=== PATIENT | female | born 1960 | race Caucasian/White ===

== ENCOUNTER 2022-06-20 19:48 | Emergency (ER) | payer OTHER ==
[~2022-06-20] VITALS: Ht 157.5 cm; Wt 50.8 kg
[~2022-06-20 19:48] MED LIST: BACTRIM DS TAB1 EACH PO
== END 2022-06-20 22:55 | disposition home or self-care (01) ==
LOC: ED 19:48
DX: T84.021A Dislocation of internal left hip prosthesis, initial encounter (principal); X58.XXXA Exposure to other specified factors, initial encounter; Z87.891 Personal history of nicotine dependence
CPT/HCPCS: 27265; 73502; 99152; 99283-25; J0780; J2270; J2405; J7121

== ENCOUNTER 2022-08-01 13:29 | Emergency (ER) | payer OTHER ==
[~2022-08-01] VITALS: Ht 157.5 cm; Wt 50.8 kg
--- NOTE | 2022-08-02 07:06 | OR ---
[facility] [address] [place], [place] [address] Signed DATE OF OPERATION: 08/01/2022 SURGEON: Casa Gordillo MD PREOPERATIVE DIAGNOSIS: Dislocated left total hip replacement. POSTOPERATIVE DIAGNOSIS: Dislocated left total hip replacement . PROCEDURE PERFORMED: Closed reduction, left hip. RULES EXAMINER: None. ANESTHESIA: Conscious sedation by Robyn Shaver. BRIEF HISTORY: Heriberto is a 62-year-old female, who has suffered her 2nd dislocation in one month. Multiple attempts by the ER physician were unsuccessful and he contacted me and I agreed to come and see the patient. Risks, benefits, and alternatives of closed reduction were discussed with her and she elected to proceed. DESCRIPTION OF THE OPERATION: Once consent was obtained, the patient was placed under conscious sedation in the ER room. Multiple attempts were made to reduce it. When good relaxation was finally obtained, the hip was distracted, abducted and internally rotated and the hip was felt to reduce. Post reduction films are pending. We will place her in a knee immobilizer and have her follow up. Casa Gordillo MD BA/MILLIL /[id number] Electronically Signed By: CASA GORDILLO MD 08/02/22 0706 PATIENT NAME: HERIBERTO SALIANS OPERATIVE REPORT DATE OF : 56 REPORT #: [id number] PHYSICIAN: CASA GORDILLO MD PCP: NOLAN GRAMAJO REPORT IS CONFIDENTIAL AND NOT TO BE RELEASED WITHOUT AUTHORIZATION [facility] [address] [place], [place] [address] Signed Copies: ~ Electronically Signed By: CASA GORDILLO MD 08/02/22 0706 PATIENT NAME: HERIBERTO SALINAS OPERATIVE REPORT DATE OF : 56 REPORT #: [id number] PHYSICIAN: CASA GORDILLO MD PCP: NOLAN GRAMAJO REPORT IS CONFIDENTIAL AND NOT TO BE RELEASED WITHOUT AUTHORIZATION
== END 2022-08-01 18:55 | disposition home or self-care (01) ==
LOC: ED 13:29
DX: T84.021A Dislocation of internal left hip prosthesis, initial encounter (principal); X58.XXXA Exposure to other specified factors, initial encounter; Z87.891 Personal history of nicotine dependence
CPT/HCPCS: 01200; 27265; 36415; 72170; 73502; 80053; 85025; 94799; 99283-25; C9803; J1170; J2704; U0003